=== PATIENT | male | born 1935 | race Caucasian/White ===

== ENCOUNTER → 2016-11-01 | Outpatient (CLI) | payer OTHER | LOC: FIMAGING 13:05 | PROVIDERS: ATTEND Nurse Practitioner Family | DX: R05 Cough (principal); R53.83 Other fatigue ==

== ENCOUNTER → 2017-02-23 | Outpatient (CLI) | payer OTHER | LOC: BHFA 10:00 | PROVIDERS: ATTEND Internal Medicine Cardiovascular Disease | DX: R94.31 Abnormal electrocardiogram [ECG] [EKG] (principal); R00.0 Tachycardia, unspecified ==

== ENCOUNTER → 2018-02-24 | Outpatient (CLI) | payer OTHER | LOC: BHFA 09:15 | PROVIDERS: ATTEND Internal Medicine Cardiovascular Disease | DX: I49.3 Ventricular premature depolarization (principal) ==